=== PATIENT | female | born 1990 | race Caucasian/White ===

== ENCOUNTER → 2017-11-30 | Outpatient (REF) | payer OTHER | LOC: M SFHCLERA 16:31 | DX: J02.9 Acute pharyngitis, unspecified (principal) ==

== ENCOUNTER → 2018-06-27 | Outpatient (CLI) | payer OTHER | LOC: M RAD 10:03 | DX: Z36.89 Encounter for other specified antenatal screening (principal); Z3A.19 19 weeks gestation of pregnancy | CPT/HCPCS: 76811 ==

== ENCOUNTER → 2018-07-23 | Outpatient (CLI) | payer OTHER ==
[2018-07-23 14:23] LABS: BASO # 0.1 10^3/uL (0.0-0.2); BASO % 0.4 % (0.0-1.0); EOS # 0.2 10^3/uL (0.0-0.50); EOS % 1.3 % (0.0-3.0); HEMOGLOBIN 12.4 g/dl (12.0-15.5); IMMATURE GRANULOCYTE % 1.9 % (0-3.0); LYMPH # 1.6 10^3/uL (1.5-4.5); LYMPH % 13.9 % (24.0-44.0); MEAN CORPUSCULAR HEMOGLOBIN 31.1 pg (27.0-33.0); MEAN CORPUSCULAR HGB CONC 34.4 g/dl (32.0-36.5); MEAN CORPUSCULAR VOLUME 90.2 fl (80.0-96.0); MONO # 0.5 10^3/uL (0.0-0.8); MONO % 4.6 % (0.0-5.0); NEUTROPHILS # 9.2 10^3/uL (1.8-7.7); NEUTROPHILS % 77.9 % (36.0-66.0); PLATELET COUNT, AUTOMATED 215 10^3/uL (150-450); RED BLOOD COUNT 3.99 10^6/uL (4.00-5.40); WHITE BLOOD COUNT 11.8 10^3/uL (4.0-10.0)
[2018-07-23 15:29] LABS: HBsAg Prenatal NEGATIVE (NEGATIVE); HIV 1&2 SCREEN CENTAUR NEGATIVE (NEGATIVE); RUBELLA IgG QUALITATIVE IMMUNE (IMMUNE)
[2018-07-23 15:29] LABS: HEPATITIS C VIRUS ABY INDEX < 0.0 INDEX (<0.8)
[2018-07-23 16:12] LABS: CHLAMYDIA DNA AMPLIFICATION NEGATIVE (NEGATIVE); GC DNA AMPLIFICATION NEGATIVE (NEGATIVE)
== END ==
LOC: M LAB 13:14
DX: Z36.89 Encounter for other specified antenatal screening (principal)
CPT/HCPCS: 86762

== ENCOUNTER → 2018-08-24 | Outpatient (REF) | payer OTHER | LOC: M LAB REF 13:08 | DX: Z34.03 Encounter for supervision of normal first pregnancy, third trimester (principal) ==

== ENCOUNTER → 2018-09-25 | Outpatient (CLI) | payer OTHER ==
--- NOTE | 2018-09-26 06:02 | REP ---
Clinical: Anatomical evaluation. Comparison: 06/27/2018 . Findings: Examination demonstrates a single live intrauterine in cephalic presentation. motion is identified by technologist. Placenta is noted posterior and grade grade 1 without evidence for placenta previa or abruption. Amniotic fluid volume is normal. Cervix measures 3.9 cm in length and appears closed. No evidence for nuchal cord. Gestational age by LMP 31 weeks 1 day with EDGARDO 11/26/2018 . Gestational age by current measurements 31 weeks 6 days with EDGARDO 11/21/2018 . FHR equals 135 beats per minute. Amniotic fluid index: 15.2 cm (8.8 - 23.8). Umbilical cord SD ratio: 2.57 (2.50 - 3.50) Estimated weight 1796 grams ( 53rd percentile). Anatomical assessment demonstrates normal structures including cranium, choroid plexus, cavum, cerebellum/posterior fossa, facial features, lungs, four-chamber heart/ventricular outflow tracts, diaphragm, stomach, cord insertion/three-vessel cord, kidneys/bladder, and spine. Impression: Single live intrauterine in cephalic presentation demonstrating appropriate interval growth. In conjunction with prior examination anatomical assessment is essentially complete and normal. Renal pelviectasis noted but within normal range for age. Electronically Signed by Tevin Morales MD 09/26/2018 05:53 A
== END ==
LOC: M RAD 13:38
PROVIDERS: ATTEND Advanced Practice Midwife
DX: Z36.2 Encounter for other antenatal screening follow-up (principal); Z3A.31 31 weeks gestation of pregnancy

== ENCOUNTER → 2018-10-10 | Outpatient (CLI) | payer OTHER ==
[2018-10-10 14:51] LABS: BASO % 0.3 % (0.0-1.0); EOS # 0.1 10^3/uL (0.0-0.50); EOS % 0.9 % (0.0-3.0); HEMATOCRIT 35.2 % (36.0-47.0); HEMOGLOBIN 12.1 g/dl (12.0-15.5); LYMPH # 1.4 10^3/uL (1.5-4.5); LYMPH % 13.2 % (24.0-44.0); MEAN CORPUSCULAR HEMOGLOBIN 30.9 pg (27.0-33.0); MEAN CORPUSCULAR HGB CONC 34.4 g/dl (32.0-36.5); MONO # 0.7 10^3/uL (0.0-0.8); MONO % 6.5 % (0.0-5.0); NEUTROPHILS # 8.3 10^3/uL (1.8-7.7); NEUTROPHILS % 78.1 % (36.0-66.0); PLATELET COUNT, AUTOMATED 225 10^3/uL (150-450); RED BLOOD COUNT 3.91 10^6/uL (4.00-5.40); WHITE BLOOD COUNT 10.6 10^3/uL (4.0-10.0)
== END ==
LOC: M LAB 13:32
PROVIDERS: ATTEND Advanced Practice Midwife
DX: Z34.03 Encounter for supervision of normal first pregnancy, third trimester (principal); Z3A.00 Weeks of gestation of pregnancy not specified

== ENCOUNTER → 2018-10-15 | Outpatient (CLI) | payer OTHER | LOC: M LAB 06:49 | PROVIDERS: ATTEND Advanced Practice Midwife | DX: Z34.83 Encounter for supervision of other normal pregnancy, third trimester (principal); Z3A.00 Weeks of gestation of pregnancy not specified ==

== ENCOUNTER → 2018-11-01 | Outpatient (REF) | payer OTHER | LOC: M LAB REF 13:17 | PROVIDERS: ATTEND Advanced Practice Midwife | DX: Z34.83 Encounter for supervision of other normal pregnancy, third trimester (principal) ==

== ENCOUNTER 2018-11-29 10:45 | Inpatient (IN) | payer OTHER ==
[2018-11-29] VITALS (20 sets, daily range): BP systolic 112–156; BP diastolic 61–86
[~2018-11-29] VITALS: Ht 162.6 cm; Wt 71.0 kg
[2018-11-29] MEDS ORDERED: PRENTAB9 PO (10:58)
[2018-11-29] MEDS ORDERED: LR 1,000 ML IV SCH (11:06)
[2018-11-29] MEDS ORDERED: LACTATED RINGER'S 1000 ML IV STA (11:06)
[2018-11-29 12:23] LABS: HEMOGLOBIN 12.3 g/dl (12.0-15.5); MEAN CORPUSCULAR HEMOGLOBIN 29.5 pg (27.0-33.0); MEAN CORPUSCULAR HGB CONC 33.2 g/dl (32.0-36.5); MEAN CORPUSCULAR VOLUME 88.7 fl (80.0-96.0); PLATELET COUNT, AUTOMATED 285 10^3/uL (150-450); RED BLOOD COUNT 4.17 10^6/uL (4.00-5.40); WHITE BLOOD COUNT 18.5 10^3/uL (4.0-10.0)
[2018-11-29] MEDS ORDERED: OXYTOCIN DRIP 30 UNITS in APPROPRIATE DILUENT 1 EA IV SCH (12:45)
--- NOTE | 2018-11-29 13:34 | HPE ---
DATE OF ADMISSION: 11/29/2018 28-year-old 1, para 0 female at 40-3/7 weeks gestation by 12 week ultrasound, estimated date of confinement (EDC) of 11/26/2018, presents with spontaneous gush of fluid per vagina at 5:00 a.m. on the day of admission. Her contractions increased to every 5 minutes. She continues to leak on and off. There is good movement. COURSE: The patient initiated care at 12 weeks gestation on 05/16/2018. Her first trimester blood pressure was 136/84, weight 129 pounds. She was noncompliant with care missing over two months of care during the . At one point, she asked "what's the point" to care. She had no further complications. MEDICAL HISTORY: None. SURGERIES: [place] teeth. ALLERGIES: None. SOCIAL HISTORY: The patient is . She lives at [place]. She denies cigarettes, alcohol or drug use. FAMILY HISTORY: Noncontributory. PHYSICAL EXAMINATION: Blood pressure 132/80, weight 167. She appears uncomfortable. Head and neck exam normal. Lungs clear. Heart regular rate and rhythm. Abdomen nontender, gravid. heart tones category 1. Contractions every 5 to 6 minutes. Sterile vaginal exam grossly ruptured, clear fluid noted, 5 cm, 90%, -2, vertex, soft. LABS: Blood type A positive. Rubella immune. RPR nonreactive. Hepatitis B and C negative. Group B Streptococcus (GBS) negative on 11/01/2018. A/P 28 yo at 40 3/7 weeks presentss in active labor with SROM Plan to admit to R 11/29/18. Hudson Ellis MD [facility]
[2018-11-29] MEDS ORDERED: FENTANYL 2MCG/ML ROPIVACAINE 0.2% IN 0.9% NACL 100ML IVBAG As Ordered ONE (14:46)
[2018-11-29] MEDS ORDERED: FENTANYL/ROPIVACAINE/NACL BAG 100 ML EPIDURAL SCH (15:30)
[2018-11-29] MEDS ORDERED: NALOXONE INJ 0.4 MG/1 ML VIAL (J2310) IV PRN ×3 (15:30→23:45)
[2018-11-29] MEDS ORDERED: diphenhydrAMINE INJ 50MG/ML VIAL (J1200) IV PRN ×2 (15:30→23:45)
[2018-11-29] MEDS ORDERED: ePHEDrine SULFATE 25 MG/5 ML(5MG/ML) SYRINGE IV PRN (15:30)
[2018-11-29] MEDS ORDERED: EPIDURAL/PCA KEYS XX PRN (15:30)
[2018-11-29] MEDS ORDERED: ONDANSETRON 4MG/2ML VIAL (J2405) IV PRN ×2 (15:30→23:45)
[2018-11-29] MEDS ORDERED: LACTATED RINGER'S 1000 ML IV PRN (15:30)
[2018-11-29] MEDS ORDERED: EPIDURAL COMMENT XX SCH (15:30)
[2018-11-29] MEDS ORDERED: REFRIGERATOR IV KEYS XX PRN (15:30)
[2018-11-29] MEDS ORDERED: BICITRA 30ML SOLN UDC PO ONE (22:45)
[2018-11-29] MEDS ORDERED: LIDOCAINE 2% W/EPIN INJ 20ML **PRES FREE As Ordered ONE (23:13)
[2018-11-29] MEDS ORDERED: OXYTOCIN INJ 10 UNITS/ML VIAL (J2590) As Ordered ONE (23:13)
[2018-11-29] MEDS ORDERED: SODIUM BICARBONATE 8.4% INJ 50MEQ 50 ML VIAL As Ordered ONE (23:13)
[2018-11-29] MEDS ORDERED: ONDANSETRON 4MG/2ML VIAL (J2405) As Ordered ONE (23:13)
[2018-11-29] MEDS ORDERED: dexameTHASONE 4 MG/ML 1ML VIAL (J1100) As Ordered ONE (23:14)
[2018-11-29] MEDS ORDERED: MORPHINE PRES-FREE INJ 10 MG/10 ML VIAL (J2274) As Ordered ONE (23:42)
[2018-11-29] MEDS ORDERED: NALBUPHINE HCL 10 MG/ML AMP (J2300) IV PRN (23:45)
[2018-11-29] MEDS ORDERED: METOCLOPRAMIDE INJ 10MG/2ML VIAL (J2765) IV PRN (23:45)
[2018-11-29] MEDS ORDERED: PHENYLephrine HCL 500 MCG/5 ML (100MCG/ML) SYRINGE (J2370) As Ordered ONE (23:52)
[2018-11-29] MEDS ORDERED: ePHEDrine SULFATE 25 MG/5 ML(5MG/ML) SYRINGE As Ordered ONE (23:52)
[2018-11-30] VITALS (15 sets, daily range): BP systolic 104–136; BP diastolic 53–77
[2018-11-30] MEDS ORDERED: miSOPROStol 200 MCG TAB (S0191) As Ordered ONE (00:03)
[2018-11-30] MEDS ORDERED: OXYTOCIN DRIP 30 UNITS in APPROPRIATE DILUENT 1 EA IV SCH (00:12)
[2018-11-30] MEDS ORDERED: LR 1,000 ML IV SCH ×2 (00:12→00:30)
[2018-11-30] MEDS ORDERED: miSOPROStol 200 MCG TAB (S0191) PR ONE (00:15)
[2018-11-30] MEDS ORDERED: ONDANSETRON 4MG/2ML VIAL (J2405) IV PRN ×2 (00:15→00:30)
[2018-11-30] MEDS ORDERED: DOCUSATE SODIUM 100 MG CAP PO PRN (00:15)
[2018-11-30] MEDS ORDERED: MEASLES,MUMPS,RUBELLA VACCINE INJ (MMR-II) (90707) SC SCH (00:15)
[2018-11-30] MEDS ORDERED: RHOGAM 300 MCG (1500 IU) INJ (J2790) IM SCH (00:15)
[2018-11-30] MEDS ORDERED: PERCOCET 5MG/325MG TAB PO PRN ×2 (00:15)
[2018-11-30] MEDS ORDERED: PERC5TAB12 PO (00:22)
[2018-11-30] MEDS ORDERED: IBUP1TAB7 PO (00:23)
[2018-11-30] MEDS ORDERED: METOCLOPRAMIDE INJ 10MG/2ML VIAL (J2765) IV PRN (00:30)
[2018-11-30] MEDS ORDERED: fentaNYL 100 MCG/2 ML INJECTION (J3010) IV PRN (00:30)
[2018-11-30] MEDS ORDERED: NALBUPHINE HCL 10 MG/ML AMP (J2300) IV PRN (00:30)
[2018-11-30] MEDS ORDERED: KETOROLAC 30 MG/ML VIAL (J1885) As Ordered ONE (00:43)
[2018-11-30] MEDS ORDERED: OXYTOCIN INJ 10 UNITS/ML VIAL (J2590) IV STA (05:08)
[2018-11-30] MEDS ORDERED: METHYLERGONOVINE MALEATE 0.2 MG/ML VIAL (J2210) IM STA (05:08)
[2018-11-30] MEDS: KETOROLAC 30 MG/ML VIAL (J1885) IV SCH ×3 (06:52→18:37)
[2018-11-30] MEDS: PRENATAL VITAMINS CHEWABLE TABLET PO SCH (08:49)
--- NOTE | 2018-11-30 10:28 | RO ---
DATE OF PROCEDURE: 11/29/2018 PREPROCEDURE DIAGNOSIS: 40 and 3/7 weeks gestation, labor, arrest of descent. POSTPROCEDURE DIAGNOSIS: Delivered. PROCEDURE: Primary low transverse section. SURGEON: Dr. Hudson Ellis WHITEWASHER: Keanu Steele MD ANESTHESIA: Epidural. ESTIMATED BLOOD LOSS: 500 mL. URINE OUTPUT: 100 mL. IV FLUIDS: 550 mL. FINDINGS: 3540 gram or 7 pound and 13 ounce male , Apgars 9 and 10. Occiput posterior position. Light meconium present. Normal uterus, fallopian tubes and ovaries. DESCRIPTION OF PROCEDURE: The patient was taken to the operating room where epidural anesthesia was adequate. She was prepped and draped in sterile fashion in the supine position. A Rice catheter was already in place. A Pfannenstiel skin incision was made with the scalpel and carried through to the fascia. The fascia was nicked and extended and the fascia dissected off the rectus muscles. The peritoneal cavity was entered. A bladder flap was created. A curvilinear incision was made in the lower uterine segment until light meconium stained fluid was noted. This was extended manually. The infant was delivered without difficulty. The cord was doubly clamped and cut. The was handed off to the awaiting nurses. The placenta was expressed. The uterus was exteriorized and cleared of clots and debris. The uterine incision was closed with #0 Vicryl in a running locked fashion. A second imbricating layer of #0 Vicryl was placed. The uterus was placed back in the abdominal cavity. The peritoneum was closed with #2-0 Vicryl. The fascia was closed with #0 Vicryl in running fashion. The deep layer was irrigated. The skin was closed with #4-0 Monocryl subcuticular sutures. Sponge, instrument and needle counts were correct. Dr. Keanu Steele assisted with all aspects of the procedure from beginning to end. He opened all layers of the abdomen, helped with expulsion of the fetus and closure of all layers.
[2018-11-30 13:07] LABS: MEAN CORPUSCULAR HEMOGLOBIN 30.2 pg (27.0-33.0); MEAN CORPUSCULAR HGB CONC 32.8 g/dl (32.0-36.5); MEAN CORPUSCULAR VOLUME 92.2 fl (80.0-96.0); PLATELET COUNT, AUTOMATED 184 10^3/uL (150-450); RED BLOOD COUNT 2.81 10^6/uL (4.00-5.40); WHITE BLOOD COUNT 17.1 10^3/uL (4.0-10.0)
[2018-11-30 13:17] LABS: HEMATOCRIT 25.9 % (36.0-47.0); HEMOGLOBIN 8.5 g/dl (12.0-15.5)
[2018-11-30] MEDS ORDERED: OXYTOCIN 30 UNITS IN 0.9% NaCl 500ML IV BAG (J2590) As Ordered ONE (15:05)
[2018-12-01 02:09] VITALS: BP 118/74
[2018-12-01] MEDS: IBUPROFEN 800 MG TAB PO SCH ×2 (02:55→12:33)
[2018-12-01 05:24] VITALS: BP 124/69
[2018-12-01 07:23] LABS: HEMATOCRIT 22.8 % (36.0-47.0); HEMOGLOBIN 7.4 g/dl (12.0-15.5); MEAN CORPUSCULAR HEMOGLOBIN 29.8 pg (27.0-33.0); MEAN CORPUSCULAR HGB CONC 32.5 g/dl (32.0-36.5); MEAN CORPUSCULAR VOLUME 91.9 fl (80.0-96.0); PLATELET COUNT, AUTOMATED 166 10^3/uL (150-450); RED BLOOD COUNT 2.48 10^6/uL (4.00-5.40); WHITE BLOOD COUNT 13.3 10^3/uL (4.0-10.0)
[2018-12-01] MEDS: PRENATAL VITAMINS CHEWABLE TABLET PO SCH (08:52)
[2018-12-01] MEDS ORDERED: COLA100C5 PO (10:32)
[2018-12-01] MEDS ORDERED: IBUP80TA PO (10:32)
[2018-12-01] MEDS ORDERED: FERR325T3 PO (10:40)
--- NOTE | 2018-12-01 14:54 | NUR ---
Discharge Summary Date of admission: 11/29/2018 Date of discharge: 12/01/2018 Admitting diagnosis: 40+3 weeks gestation, spontaneous rupture of membranes. Discharge diagnosis: Status post primary low transverse section. Single, liveborn delivered via . Indication: Arrest of descent Discharge Summary: 28 year-old G1 now P1. She was admitted on 11/29/2018 at 40+3 weeks EGA with a diagnosis of ruptured membranes/labor.. Her labor course was complicated by arrest of descent. This prompted an unscheduled delivery under regional anesthesia. The delivery was uncomplicated with an estimated blood loss 500 mL. The patient's postoperative courses was notable for postoperative anemia, but was otherwise uncomplicated. She was not experiencing any classic signs or symptoms of anemia. By postoperative day #2, the patient was meeting all discharge criteria. Her pain was well controlled on oral pain meds. She was ambulating without assistance, voiding spontaneously, tolerating a regular diet, and her lochia/bleeding was minimal. Physical exam on date of discharge: Vitals: normotensive, normal HR, afebrile Heart: regular rate and rhythm with no murmurs, gallops, rubs. Lungs: clear to auscultation bilaterally, no wheezes, crackles, rales, ronchi Abd: soft, non-distended, appropriately tender. Normoactive bowel sounds. Incision: clean, dry, intact without surrounding erythema or induration. Ext: non-edematous, non-tender, negative Andrea's sign bilaterally Preoperative Hgb/Hct: 12.3/37.0 Postoperative Hgb/Hct: 8.5/25.9, 7.4/22.8 Assessment/Plan: 28 year-old G1 now P1 status post primary low transverse delivery on 11/29/2018 now postoperative day #2. Hemodynamically stable, afebrile, with good pain control. Asymptomatic postoperative anemia . Meeting all discharge criteria. -Routine infectious, fever, pain, and bleeding precautions reviewed -Surgical wound/incisional care / precautions reviewed. -Discharge medications: Percocet, Motrin, Colace, iron sulfate twice a day. -Outpatient follow up in 1-2 weeks for a routine incision / postoperative check. Dr. Bryce Carr, DO, FACOG
== END 2018-12-01 13:40 | disposition home or self-care (01) | DRG 773 ==
LOC: M LDI 10:45 → M OBS 11-30 01:39
PROVIDERS: ADMIT Specialist; ATTEND Specialist
PROC: 10D00Z1 Extraction of Products of Conception, Low, Open Approach (ICD-10-PCS; principal; 2018-11-29)
DX: O48.0 Post-term pregnancy (principal); Z37.0 Single live birth; Z3A.40 40 weeks gestation of pregnancy; Z91.19 Patient's noncompliance with other medical treatment and regimen; O09.33 Supervision of pregnancy with insufficient antenatal care, third trimester; O32.4XX0 Maternal care for high head at term, not applicable or unspecified

== ENCOUNTER → 2020-07-14 | Outpatient (CLI) | payer OTHER ==
[~2020-07-14] MED LIST: COLA100C5 PO; FERR325T3 PO; IBUP1TAB7 PO; IBUP80TA PO; PERC5TAB12 PO; PRENTAB9 PO
[2020-07-14 12:28] LABS: BASO % 0.3 % (0.0-1.0); EOS # 0.1 10^3/uL (0.0-0.5); EOS % 0.6 % (0.0-3.0); HEMATOCRIT 37.5 % (36.0-47.0); HEMOGLOBIN 12.7 g/dl (12.0-15.5); LYMPH # 1.4 10^3/uL (1.5-5.0); LYMPH % 12.1 % (24.0-44.0); MEAN CORPUSCULAR HEMOGLOBIN 30.3 pg (27.0-33.0); MEAN CORPUSCULAR HGB CONC 33.9 g/dl (32.0-36.5); MEAN CORPUSCULAR VOLUME 89.5 fl (80.0-96.0); MONO # 0.5 10^3/uL (0.0-0.8); MONO % 4.5 % (0.0-5.0); NEUTROPHILS # 9.5 10^3/uL (1.5-8.5); NEUTROPHILS % 81.3 % (36.0-66.0); PLATELET COUNT, AUTOMATED 226 10^3/uL (150-450); RED BLOOD COUNT 4.19 10^6/uL (4.00-5.40); WHITE BLOOD COUNT 11.6 10^3/uL (4.0-10.0)
[2020-07-14 13:44] LABS: HEPATITIS B SURFACE ANTIGEN NEGATIVE (NEGATIVE); HEPATITIS C VIRUS ABY INDEX 0.1 INDEX (<0.8); HIV 1&2 SCREEN CENTAUR NEGATIVE (NEGATIVE)
== END ==
LOC: M LAB 11:28
PROVIDERS: ATTEND Specialist
DX: Z34.81 Encounter for supervision of other normal pregnancy, first trimester (principal); Z3A.00 Weeks of gestation of pregnancy not specified

== ENCOUNTER → 2020-07-28 | Outpatient (CLI) | payer OTHER ==
--- NOTE | 2020-07-29 04:37 | REP ---
INDICATION: ANATOMY ULTRASOUND COMPARISON: None. TECHNIQUE: Transabdominal obstetrical ultrasound with color Doppler evaluation. FINDINGS: Examination demonstrates a single live intrauterine in breech presentation. motion is identified by technologist. Placenta is noted posterior and grade 1 without evidence for placenta previa or abruption. Amniotic fluid volume is normal. Cervix measures 3.9 cm in length and appears closed. No evidence for nuchal cord. Gestational age by LMP 19 weeks 0 days with EDGARDO 12/22/2020. Gestational age by current measurements 19 weeks 2 days with EDGARDO 12/20/2020. FHR equals 152 beats per minute. BPD: 4.4 cm 19 weeks 1 day HC: 16.4 cm 19 weeks 1 day AC: 14.1 cm 19 weeks 3 days FL: 3.0 cm 19 weeks 2 days HL: 2.9 cm 19 weeks 3 days HC/AC: 1.17 Estimated weight 286 grams (48thpercentile). Anatomical assessment demonstrates normal structures including cranium, choroid plexus, cavum, cerebellum/posterior fossa, lungs, four-chamber heart/left ventricular outflow tract, diaphragm, stomach, cord insertion/three-vessel cord, kidneys/bladder, spine, and extremities. Limited evaluation of the facial features and right cardiac ventricular outflow tract. IMPRESSION: Single live intrauterine in breech presentation demonstrating appropriate weight. Anatomical limitations as described above may warrant re-evaluation and follow-up. <Electronically signed by Tevin Morales > 07/29/20 0430
== END ==
LOC: M RAD 09:01
PROVIDERS: ATTEND Specialist
DX: Z34.82 Encounter for supervision of other normal pregnancy, second trimester (principal)

== ENCOUNTER → 2020-09-23 | Outpatient (CLI) | payer OTHER ==
[2020-09-23 14:13] LABS: HEMOGLOBIN 11.5 g/dl (12.0-15.5); MEAN CORPUSCULAR HEMOGLOBIN 30.3 pg (27.0-33.0); MEAN CORPUSCULAR HGB CONC 32.9 g/dl (32.0-36.5); MEAN CORPUSCULAR VOLUME 92.1 fl (80.0-96.0); PLATELET COUNT, AUTOMATED 254 10^3/uL (150-450); WHITE BLOOD COUNT 10.8 10^3/uL (4.0-10.0)
== END ==
LOC: M LAB 12:32
PROVIDERS: ATTEND Specialist
DX: Z34.82 Encounter for supervision of other normal pregnancy, second trimester (principal); Z3A.00 Weeks of gestation of pregnancy not specified

== ENCOUNTER → 2020-09-24 | Outpatient (CLI) | payer OTHER ==
--- NOTE | 2020-09-24 13:21 | REP ---
INDICATION: ANATOMY. COMPARISON: 07/28/2020. TECHNIQUE: Real-time sonographic evaluation of the gravid uterus performed. FINDINGS: Estimated gestational age is27 weeks 2 days, EDC 12/22/2020. Today's measurements indicate appropriate growth. Presentation: Variable Placenta fundal, grade 1, without evidence of placenta previa. heart rate is recorded at 139 beats per minute. Amniotic fluid is subjectively normal. DARIO 17.6, normal range 9.5-22.7. Closed cervical length is measured at 4.4 cm. Biometry chart: BPD: 74 mm, 29 weeks 5 days, over 95th percentile. HC: 271 mm, 29 weeks 4 days, over 95th percentile AC: 241 mm, 28 weeks 2 days, 71st percentile Femur length: 52 mm, 27 weeks 6 days, 61st percentile HC to AC ratio: 1.13, normal range 1.0-1.18. Estimated weight: 1218g, 65th percentile. anatomy: Cranium: Grossly normal Lateral Ventricles/Choroid Plexus: Grossly normal Posterior Fossa/Cerebellum: Grossly normal Nose/lips/profile: Grossly normal Four chamber heart: Grossly normal Right ventricular outflow tract: Grossly normal Left ventricular outflow tract: Grossly normal Left-sided stomach: Grossly normal Kidneys: Grossly normal Bladder: Grossly normal Cord Insertion: Grossly normal 3 vessel cord: Grossly normal Spine: Grossly normal IMPRESSION: Viable single intrauterine gestation as above. <Electronically signed by Flip Stafford > 09/24/20 [id number]
== END ==
LOC: M RAD 12:02
PROVIDERS: ATTEND Specialist
DX: Z34.82 Encounter for supervision of other normal pregnancy, second trimester (principal); Z3A.27 27 weeks gestation of pregnancy

== ENCOUNTER → 2020-12-10 | Outpatient (CLI) | payer OTHER | LOC: M LABSMTC 09:28 | PROVIDERS: ATTEND Anesthesiology | DX: Z01.812 Encounter for preprocedural laboratory examination (principal); Z20.822 Contact with and (suspected) exposure to COVID-19 ==

== ENCOUNTER 2020-12-15 05:11 | Inpatient (IN) | payer OTHER ==
[2020-12-15] VITALS (9 sets, daily range): BP systolic 108–133; BP diastolic 53–67
[~2020-12-15] VITALS: Ht 162.6 cm; Wt 71.3 kg
[2020-12-15] MEDS ORDERED: ceFAZolin SOD 2 GM in IV 1 EA IV ONE (05:55)
[2020-12-15] MEDS ORDERED: LR 1,000 ML IV SCH ×2 (05:55→08:37)
[2020-12-15] MEDS ORDERED: BICITRA 30ML SOLN UDC PO ONE (05:55)
[2020-12-15 05:58] LABS: HEMATOCRIT 36.3 % (36.0-47.0); HEMOGLOBIN 11.5 g/dl (12.0-15.5); MEAN CORPUSCULAR HGB CONC 31.7 g/dl (32.0-36.5); MEAN CORPUSCULAR VOLUME 85.2 fl (80.0-96.0); PLATELET COUNT, AUTOMATED 278 10^3/uL (150-450); RED BLOOD COUNT 4.26 10^6/uL (4.00-5.40); WHITE BLOOD COUNT 9.8 10^3/uL (4.0-10.0)
[2020-12-15] MEDS ORDERED: ONDANSETRON 4MG/2ML VIAL IV PRN ×2 (07:43→09:05)
[2020-12-15] MEDS ORDERED: diphenhydrAMINE 50MG/ML VIAL (J1200) IV PRN (07:43)
[2020-12-15] MEDS ORDERED: METOCLOPRAMIDE INJ 10MG/2ML VIAL (J2765 PER 1) IV PRN (07:43)
[2020-12-15] MEDS ORDERED: NALOXONE INJ 0.4MG/1ML VIAL (J2310 PER 1MG) IV PRN ×2 (07:43)
[2020-12-15] MEDS ORDERED: NALBUPHINE HCL 10 MG/ML AMP (J2300) IV PRN ×2 (07:43→09:05)
[2020-12-15] MEDS ORDERED: ePHEDrine SULFATE 25 MG/5 ML(5MG/ML) SYRINGE As Ordered ONE (07:52)
[2020-12-15] MEDS ORDERED: ONDANSETRON 4MG/2ML VIAL As Ordered ONE (07:52)
[2020-12-15] MEDS ORDERED: PHENYLephrine 500MCG 5ML (100MCG/ML) SYRINGE As Ordered ONE (07:52)
[2020-12-15] MEDS ORDERED: OXYTOCIN INJ 10 UNITS/ML VIAL (J2590) As Ordered ONE (07:52)
[2020-12-15] MEDS ORDERED: MORPHINE PRES-FREE INJ 10 MG/10 ML VIAL (J2274) As Ordered ONE (07:52)
[2020-12-15] MEDS ORDERED: OXYTOCIN DRIP 30 UNITS in IV 1 EA IV SCH (08:37)
[2020-12-15] MEDS ORDERED: PERCOCET 5MG/325MG TAB PO PRN ×2 (08:40)
[2020-12-15] MEDS ORDERED: RHOGAM 300 MCG (1500 IU) INJ (J2790) IM SCH (08:40)
[2020-12-15] MEDS ORDERED: MEASLES,MUMPS,RUBELLA VACCINE INJ (MMR-II) (90707) SC SCH (08:40)
[2020-12-15] MEDS ORDERED: SIMETHICONE 80MG CHEW TAB PO PRN (08:40)
[2020-12-15] MEDS ORDERED: HYDROMORPHONE HCL 0.5 MG/ 0.5 ML SYRINGE (J1170 PER 1) IV PRN (09:05)
[2020-12-15] MEDS ORDERED: oxyCODONE 5MG TAB PO PRN (09:05)
[2020-12-15] MEDS ORDERED: fentaNYL 100 MCG/2 ML INJECTION (J3010) IV PRN (09:05)
[2020-12-15] MEDS ORDERED: MEPERIDINE INJ 25 MG/ML VIAL (J2175) IV PRN (09:05)
[2020-12-15] MEDS ORDERED: OXYTOCIN 30 UNITS IN 0.9% NaCl 500ML IV BAG (J2590) As Ordered ONE (09:27)
[2020-12-15] MEDS: KETOROLAC 30 MG/ML 1ML VIAL IV SCH ×3 (11:38→20:58)
[2020-12-15] MEDS: PRENATAL VITAMINS CHEWABLE TABLET PO SCH (11:38)
--- NOTE | 2020-12-15 16:04 | ROOPDOC ---
[facility] Report Of Operation Report of Operation DATE OF PROCEDURE: 12/15/20 Report of operation Preoperative diagnosis: 39 weeks, prior section Postoperative diagnosis: Same Procedure: Repeat low transverse section Surgeon: Jaci Paul M.D. Asst.: Joie Pike CNM EBL: 500 ml. Urine output: 100 mL's. Findings: 8 lbs. 3 oz. (3710 g) female infant, Apgars 7 and 9 g normal uterus, fallopian tubes, ovaries. Operative summary: Patient taken to the operating room where spinal anesthesia was induced. She was prepped and draped in a sterile fashion in the supine position. A Rice catheter was placed. A Pfannenstiel skin incision was made with scalpel. Fascia was incised and extended bilaterally. The peritoneal cavity was entered. A Mobius retractor was placed. A bladder flap was created. A curvilinear incision was made in lower uterine segment until Clear fluid was noted. The incision was extended manually. The infant was delivered from the vertex position without difficulty. Cord was doubly clamped and cut. The infant was handed waiting nurses. . The placenta was expressed. Uterus was closed with O-Vicryl in a running locked fashion. A second imbricating layer of Vicryl was placed. Peritoneum was closed with 2-0 Vicryl in a running fashion. Fascia was closed with 0 Vicryl in running fashion. Skin was closed 4-0 Monocryl subcuticular sutures. Sponge, instrument and needle counts were correct. Joie Pike CNM, assisted with all aspects of the procedure. She helped each layer of the incision and deliver the fetus. JACI PAUL MD Dec 15, 2020 16:04
[2020-12-15] MEDS ORDERED: SLF 3 ML SYR IV PRN (18:35)
[2020-12-15] MEDS: SLF 3 ML SYR IV SCH (21:14)
[2020-12-16 02:00] VITALS: BP 123/68
[2020-12-16] MEDS: KETOROLAC 30 MG/ML 1ML VIAL IV SCH (02:40)
[2020-12-16 06:00] VITALS: BP 109/57
[2020-12-16] MEDS ORDERED: OXYC1TAB23 PO (06:38)
[2020-12-16] MEDS ORDERED: IBUP80TA PO (06:39)
[2020-12-16] MEDS: SLF 3 ML SYR IV SCH ×2 (06:44→14:00)
[2020-12-16] MEDS: PRENATAL VITAMINS CHEWABLE TABLET PO SCH (07:24)
[2020-12-16 08:15] LABS: MEAN CORPUSCULAR HEMOGLOBIN 26.6 pg (27.0-33.0); MEAN CORPUSCULAR HGB CONC 30.7 g/dl (32.0-36.5); MEAN CORPUSCULAR VOLUME 86.6 fl (80.0-96.0); PLATELET COUNT, AUTOMATED 209 10^3/uL (150-450); RED BLOOD COUNT 3.35 10^6/uL (4.00-5.40); WHITE BLOOD COUNT 12.3 10^3/uL (4.0-10.0)
[2020-12-16 08:29] LABS: HEMOGLOBIN 8.9 g/dl (12.0-15.5)
[2020-12-16 10:00] VITALS: BP 120/60
[2020-12-16] MEDS: IBUPROFEN 800 MG TAB PO SCH ×2 (11:21→18:37)
[2020-12-16 14:00] VITALS: BP 128/76
[2020-12-16 18:07] VITALS: BP 122/65
[2020-12-16 22:00] VITALS: BP 143/68
[2020-12-17 02:00] VITALS: BP 117/71
[2020-12-17] MEDS: IBUPROFEN 800 MG TAB PO SCH ×2 (02:04→10:51)
[2020-12-17 06:05] VITALS: BP 116/61
--- NOTE | 2020-12-17 07:14 | DSES ---
DISCHARGE SUMMARY DATE OF ADMISSION: 12/15/2020 DATE OF DISCHARGE: 12/17/2020 DISCHARGE DIAGNOSIS: 1. Repeat section at term 39 weeks, postop day #2, stable condition. SURGEON: Dr. Hudson Ellis. CHILD CARE EDUCATION COORDINATOR: Joie Pike, certified nurse tufting machine operator HISTORY: Payton is a 30-year-old 2 para 2-0-0-2 now who is admitted for planned repeat section at term. Her surgery was uncomplicated. She had an estimated blood loss of 500 ml. She delivered a female weighing 3710 grams, 8 pounds, 3 ounces and Apgars 7 and 9. Postoperatively, she has been very comfortable. Her pain has been well-managed with p.o. pain medications. She has been out of bed for self-care, sigrid-care and care. She is tolerating p.o. fluids and a regular diet. She is voiding without difficulty and passing flatus. She does request discharge home today. OBJECTIVE: Temperature 97.8, pulse is 87, respirations 16, BP 116/61. She is alert and oriented x3. Preoperative CBC on 12/15/2020: Hemoglobin 11.5, hematocrit 36.3, platelets 278,000. Postoperative CBC on 12/16/2020: Hemoglobin 8.9, hematocrit 29.0, platelets 209,000. Her breasts are soft and nontender. Her nipples are intact. There are no cracks and no bleeding. Her abdomen with fundus firm at umbilicus. The incision has the Optifoam dressing in place. There appears to be no new drainage observed. Her perineum is intact. Lochial rubra scant. Bilateral lower extremities with trace edema. PLAN: Discharge the patient to home today. She is to follow-up at [facility] for a two week incision check and an [address] Hudson Ellis. Prescriptions have been e-prescribed to her pharmacy for Percocet and Ibuprofen by Dr. Hudson Ellis. I did review discharge instructions that included breast care, incision care, sigrid-care, pelvic rest, activity and lifting restrictions, danger signs to report to her provider as well as access to care. The patient has had all of her questions answered and does desire discharge.
[2020-12-17] MEDS: PRENATAL VITAMINS CHEWABLE TABLET PO SCH (08:04)
== END 2020-12-17 11:05 | disposition home or self-care (01) | DRG 773 ==
LOC: M LDI 05:11 → M OBS 09:37
PROVIDERS: ADMIT Specialist; ATTEND Specialist
PROC: 10D00Z1 Extraction of Products of Conception, Low, Open Approach (ICD-10-PCS; principal; 2020-12-15 07:30)
DX: O34.211 Maternal care for low transverse scar from previous cesarean delivery (principal); Z3A.39 39 weeks gestation of pregnancy; Z37.0 Single live birth